=== PATIENT | female | born 2000 | race Caucasian/White ===

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

== ENCOUNTER 2020-07-31 18:56 | Emergency (ER) | payer OTHER ==
--- NOTE | 2020-07-31 20:02 | ER Document Report ---
ED Medical Screen (RME) - General Chief Complaint: Abdominal Pain Stated Complaint: BLOOD IN URINE,ABDOMINAL PAIN Time Seen by Provider: 07/31/20 19:54 TRAVEL OUTSIDE OF THE [place] IN LAST 30 DAYS: No - HPI Notes: Patient is a 19-year-old female with no medical history who presents with abdominal pain and vaginal bleeding. Patient states she has taken 3 tests in the last 2 days which have all been positive. Her last menstrual period was 06/24/2020. Patient states her abdominal pain began 3 days ago and the vaginal bleeding began earlier today. She reports nausea and vomiting but denies hematemesis and fever. . Patient is unsure of her blood type. - Related Data Allergies/Adverse Reactions: No Known Allergies Allergy (Unverified 07/31/20 19:51) Past Medical History Renal/ Medical History: Denies: Hx Peritoneal Dialysis Past Surgical History: Reports: Hx Appendectomy - Immunizations Immunizations up to date: Yes Hx Diphtheria, Pertussis, Tetanus Vaccination: Yes Physical Exam - Vital signs Vitals: Temp Pulse Resp BP Pulse Ox 98.2 F 85 16 143/81 H 100 07/31/20 19:02 07/31/20 19:02 07/31/20 19:02 07/31/20 19:02 07/31/20 19:02 - Abdominal Distension: No distension Bowel sounds: Normal Tenderness: Tender - Diffusely Notes: Exam limited due to patient seated position in triage. Course - Re-evaluation Re-evalutation: I have greeted and performed a rapid initial assessment of this patient. A comprehensive ED assessment and evaluation of the patient, analysis of test results and completion of medical decision making process will be conducted by an additional ED providers. - Vital Signs Vital signs: Temp Pulse Resp BP Pulse Ox 98.2 F 85 16 143/81 H 100 07/31/20 19:02 07/31/20 19:02 07/31/20 19:02 07/31/20 19:02 07/31/20 19:02
[2020-07-31 20:20] LABS: APPEARANCE,URINE SLIGHTLY-CLOUDY; BILIRUBIN,URINE NEGATIVE (NEGATIVE); COLOR,URINE YELLOW; GLUCOSE, URINE NEGATIVE (NEGATIVE); KETONES,URINE NEGATIVE (NEGATIVE); LEUKOCYTE ESTERASE,URINE MODERATE (NEGATIVE); NITRITE,URINE NEGATIVE (NEGATIVE); PROTEIN,URINE NEGATIVE (NEGATIVE); URINE SPECIFIC GRAVITY 1.018; UROBILINOGEN,URINE NEGATIVE mg/dL (<2.0)
[2020-07-31 21:05] LABS: ABSOLUTE BASOPHILS # (AUTO) 0.1 10^3/uL (0.0-0.2); ABSOLUTE EOSINOPHILS # (AUTO) 0.1 10^3/uL (0.0-0.6); ABSOLUTE LYMPHOCYTES (AUTO) 2.7 10^3/uL (0.5-4.7); ABSOLUTE MONOCYTES (AUTO) 0.5 10^3/uL (0.1-1.4); ABSOLUTE NEUT (AUTO) 5.7 10^3/uL (1.7-8.2); BASOPHILS % (AUTO) 0.6 % (0-2); EOSINOPHILS % (AUTO) 0.9 % (0-6); HEMATOCRIT 39.5 % (36.0-47.0); HEMOGLOBIN 13.7 g/dL (12.0-15.5); LYMPHOCYTES % (AUTO) 29.8 % (13-45); MEAN CORPUSCULAR HEMOGLOBIN 29.8 pg (27.0-33.4); MEAN CORPUSCULAR HGB CONC 34.6 g/dL (32.0-36.0); MEAN CORPUSCULAR VOLUME 86 fl (80-97); MONOCYTES % (AUTO) 5.2 % (3-13); PLATELET COUNT 240 10^3/uL (150-450); RED BLOOD COUNT 4.58 10^6/uL (3.72-5.28); SEGMENTED NEUTROPHILS % (AUTO) 63.5 % (42-78); TOTAL CELLS COUNTED % (AUTO) 100 %
[2020-07-31 21:28] LABS: ALBUMIN 4.9 g/dL (3.5-5.0); ALKALINE PHOSPHATASE 59 U/L (38-126); ANION GAP 8 (5-19); ASPARTATE AMINO TRANSFERASE 26 U/L (14-36); BILIRUBIN,DIRECT 0.2 mg/dL (0.0-0.4); BILIRUBIN,TOTAL 0.4 mg/dL (0.2-1.3); BLOOD UREA NITROGEN 12 mg/dL (7-20); CALCIUM 9.6 mg/dL (8.4-10.2); CARBON DIOXIDE 29 mmol/L (22-30); CHLORIDE 100 mmol/L (98-107); GLUCOSE 96 mg/dL (75-110); POTASSIUM 3.9 mmol/L (3.6-5.0); TOTAL PROTEIN 8.6 g/dL (6.3-8.2)
--- NOTE | 2020-07-31 22:20 | RADIOLOGY REPORT (SQ) ---
EXAM: U/S OB TRANSVAGINAL W/O DOP CLINICAL INDICATION: Vaginal bleeding. COMPARISON: None. TECHNIQUE: First trimester OB ultrasound was performed. FINDINGS: Uterus: The uterus is anteverted. It measures 7.6 x 3.9 x 5.6 cm. There is a small nabothian cyst in the cervix. This measures 4.1 x 1.5 mm x 3.7 mm. The cervix is closed and measures 3.0 cm in length. Endometrium is thickened measuring 1.6 cm. No gestational sac is identified within the endometrium. Ovaries and adnexa: Right ovary measures 2.3 x 1.5 x 2.7 cm and contains normal follicles. Normal color flow. The left ovary measures 4.0 x 2.1 x 2.7 cm. There may be a corpus luteal cyst. This is not well seen. There is normal color flow. No free fluid. IMPRESSION: Thickening of the endometrium. No intrauterine is identified. No adnexal mass or free fluid. Viability is indeterminate.
[2020-07-31] MEDS ORDERED: ACETAMINOPHEN 325 MG TABLET PO ONE (22:43)
--- NOTE | 2020-07-31 22:49 | ER Document Report ---
ED General - General Chief Complaint: Abdominal Pain Stated Complaint: BLOOD IN URINE,ABDOMINAL PAIN Time Seen by Provider: 07/31/20 19:54 Mode of Arrival: Ambulatory Information source: Patient Notes: 19-year-old female presents to the emergency room complaining of lower pelvic cramping that started yesterday. She denies any nausea, vomiting. States this evening when she went to urinate she noted some blood in her urine and a clot when she wiped. Denies any current or previous vaginal bleeding. Does complain of dysuria. States did not take any medications for pain. Last menstrual cycle June 24. States she had a positive home test yesterday. No current OB care. 2 para 1. TRAVEL OUTSIDE OF THE [place] IN LAST 30 DAYS: No - Related Data Allergies/Adverse Reactions: No Known Allergies Allergy (Unverified 07/31/20 19:51) Past Medical History - General Information source: Patient - Social History Smoking Status: Never Smoker Frequency of alcohol use: Rare Drug Abuse: None Family History: Reviewed & Not Pertinent Renal/ Medical History: Denies: Hx Peritoneal Dialysis Past Surgical History: Reports: Hx Appendectomy - Immunizations Immunizations up to date: Yes Hx Diphtheria, Pertussis, Tetanus Vaccination: Yes Review of Systems - Review of Systems Constitutional: No symptoms reported EENT: No symptoms reported Cardiovascular: No symptoms reported Respiratory: No symptoms reported Genitourinary: Dysuria, Hematuria Female Genitourinary: . denies: Vaginal discharge, Vaginal bleeding Musculoskeletal: No symptoms reported Skin: No symptoms reported Neurological/Psychological: No symptoms reported -: Yes All other systems reviewed and negative Physical Exam - Vital signs Vitals: Temp Pulse Resp BP Pulse Ox 98.2 F 85 16 143/81 H 100 07/31/20 19:02 07/31/20 19:02 07/31/20 19:02 07/31/20 19:02 07/31/20 19:02 - Notes Notes: GENERAL: Mild acute distress, non-toxic appearance. HEAD: Normal with no signs of head trauma. EYES: PERRLA, EOMI, conjunctiva normal, no discharge. EARS: Hearing grossly intact. NOSE: Normal. THROAT: Oropharynx is normal. NECK: Normal range of motion, no tenderness, supple, no lymphadenopathy, No adenopathy, no JVD. CHEST: Clear breath sounds bilaterally. No wheezes, rales, or rhonchi. CARDIAC: Regular rate and rhythm. S1 and S2, without murmurs, gallops, or rubs. VASCULAR: No Edema. Peripheral pulses normal and equal in all extremities. ABDOMEN: Normal and soft with no tenderness, no masses or pulsatile masses. No organomegaly. Positive bowel sounds x4. No CVA tenderness noted bilaterally. Patient refused pelvic exam. GASTROINTESTINAL: Bowel sounds normal LYMPATHTIC: No lymphadenopathy noted. MUSCULOSKELETAL: Good range of motion of all major joints. Extremities without clubbing, cyanosis or edema. NEUROLOGICAL: Alert and oriented x 3. No focal sensory or strength deficits. Speech normal. Follows commands appropriately. PSYCHIATRIC: Normal Affect, judgement and mood. SKIN: Normal appearance with no rashes or lesions. Course - Re-evaluation Re-evalutation: 07/31/20 22:46 Patient is resting comfortably she is pain-free on exam. She is afebrile, she is nontoxic-appearing, reviewed lab results with patient. Aware of the hCG level of 58.11. Discussed findings of ultrasound which shows a nabothian cyst, no intrauterine , no obvious tubal noted on ultrasound, cervix is closed. Patient was counseled on the importance to take Tylenol as needed for pain. Not to exceed 8 tablets in 24 hours. Also discussed with patient the importance of a repeat hCG in 48 hours. If unable to follow-up with [facility]ATION SPECIALIST on Sunday she is to return to the emergency room for her repeat hCG. On-call physician will be provided. Patient was given strict return to the emergency room guidelines. Return for any new or worsening symptoms. All questions were answered. Patient verbalized understanding and agrees with plan of care. 07/31/20 22:48 07/31/20 22:50 - Vital Signs Vital signs: Temp Pulse Resp BP Pulse Ox 98.2 F 85 16 143/81 H 100 07/31/20 19:02 07/31/20 19:02 07/31/20 19:02 07/31/20 19:02 07/31/20 19:02 - Laboratory Results Result Diagrams: 07/31/20 20:45 07/31/20 20:45 Laboratory Results Interpreted: 07/31/20 07/31/20 20:05 20:45 Total Protein 8.6 H Beta HCG, Quant 58.11 H Ur Leukocyte Esterase MODERATE H Critical Laboratory Results Reviewed: No Critical Results - Radiology Results Critical Radiology Results Reviewed: No Critical Results Discharge - Discharge Clinical Impression: Pelvic pain during , Nabothian cyst UTI (urinary tract infection) Qualifiers: Urinary tract infection type: site unspecified Hematuria presence: without hematuria Qualified Code(s): N39.0 - Urinary tract infection, site not specified Condition: Stable Disposition: HOME, SELF-CARE Instructions: Urinary Tract Infection ([facility]), Nitrofurantoin ([facility]), Pelvic Pain in ([facility]) Additional Instructions: Repeat hCG level in 48 hours. Call [facility]ATION SPECIALIST office on Sunday. If unable to get an appointment with [facility] MITIGATION SPECIALIST on Sunday return to the emergency room. Tylenol as needed for pain not to exceed 8 tablets of regular strength Tylenol in 24 hours. Return to the emergency room for any new or worsening symptoms. Prescriptions: Nitrofurantoin Monohyd/M-Cryst [Macrobid 100 mg Capsule] 100 mg PO BID 7 Days #14 cap Referrals: HECTOR HARPER MD [ACTIVE PROVISIONAL STAFF] - Follow up in 3-5 days (Call on Sunday for an outpatient follow-up appointment on Sunday for repeat hCG level)
[2020-07-31] MEDS ORDERED: NITROFURANTOIN MONOHYD/M-CRYST 100 MG CAPSULE PO ONE (22:53)
[2020-07-31 23:03] VITALS: BP 130/74
== END 2020-07-31 23:02 | disposition home or self-care (01) ==
LOC: ER 18:56
DX: O23.41 Unspecified infection of urinary tract in pregnancy, first trimester (principal); O26.891 Other specified pregnancy related conditions, first trimester; N88.8 Other specified noninflammatory disorders of cervix uteri; R10.2 Pelvic and perineal pain; Z3A.01 Less than 8 weeks gestation of pregnancy
CPT/HCPCS: 99284; 86900; 86901; 36415; 87086; 84702; 85025; 87088; 80053; 81001; 76817; J8499

== ENCOUNTER 2020-08-03 14:36 | Emergency (ER) | payer OTHER ==
--- NOTE | 2020-08-03 15:16 | ER Document Report ---
ED Medical Screen (RME) - General Chief Complaint: Abdominal Pain Stated Complaint: FOLLOW UP/HCG LEVEL TEST Time Seen by Provider: 08/03/20 15:07 TRAVEL OUTSIDE OF THE [place] IN LAST 30 DAYS: No - HPI Notes: 08/03/20 15:12 19-year-old female G2, P1 LMP 06/24/2020 presents to the emergency room for reevaluation of her hCG levels and ultrasound after having vaginal bleeding on July 31 2020 and she states she did have a positive home test on July 30, 2020. Patient has not followed up with an MECHANICAL OPERATOR. Patient also reports he is having right upper quadrant abdominal pain with nausea that started today. Has not tried any [id number] medications. Patient states she has been eating a bland diet. Denies any vomiting, diarrhea, fevers chills, chest pain or shortness of breath. I have greeted and performed a rapid initial assessment of this patient. A comprehensive ED assessment and evaluation of the patient, analysis of test results and completion of the medical decision making process will be conducted by additional ED providers. PHYSICAL EXAMINATION: GENERAL: Well-appearing, well-nourished and in no acute distress. CV: s1, s2 regular LUNGS: No respiratory distress abd: RUQ abd pain on palpation, suprapubic pain on palpation. no cva tenderness appreciated bilaterally. Musculoskeletal: Normal range of motion NEUROLOGICAL: Normal speech, normal gait. SKIN: Warm, Dry, normal turgor, no rashes or lesions noted. The patient was evaluated during a global COVID-19 pandemic and that diagnosis was suspected/considered upon their initial presentation. Their evaluation, treatment and testing was consistent with current guidelines for patients who present with complaints or symptoms and may be related to COVID-19. 08/03/20 15:13 - Related Data Allergies/Adverse Reactions: No Known Allergies Allergy (Unverified 07/31/20 19:51) Past Medical History Renal/ Medical History: Denies: Hx Peritoneal Dialysis Past Surgical History: Reports: Hx Appendectomy - Immunizations Immunizations up to date: Yes Hx Diphtheria, Pertussis, Tetanus Vaccination: Yes Physical Exam - Vital signs Vitals: Temp Pulse Resp BP Pulse Ox 98.1 F 86 14 133/83 H 99 08/03/20 14:40 08/03/20 14:40 08/03/20 14:40 08/03/20 14:40 08/03/20 14:40 Course - Vital Signs Vital signs: Temp Pulse Resp BP Pulse Ox 98.1 F 86 14 133/83 H 99 08/03/20 14:40 08/03/20 14:40 08/03/20 14:40 08/03/20 14:40 08/03/20 14:40
[2020-08-03 15:50] LABS: ABSOLUTE LYMPHOCYTES (AUTO) 1.5 10^3/uL (0.5-4.7); ABSOLUTE MONOCYTES (AUTO) 0.4 10^3/uL (0.1-1.4); ABSOLUTE NEUT (AUTO) 3.9 10^3/uL (1.7-8.2); BASOPHILS % (AUTO) 0.8 % (0-2); EOSINOPHILS % (AUTO) 0.6 % (0-6); HEMATOCRIT 41.7 % (36.0-47.0); HEMOGLOBIN 14.5 g/dL (12.0-15.5); LYMPHOCYTES % (AUTO) 25.1 % (13-45); MEAN CORPUSCULAR HEMOGLOBIN 30.2 pg (27.0-33.4); MEAN CORPUSCULAR HGB CONC 34.8 g/dL (32.0-36.0); MEAN CORPUSCULAR VOLUME 87 fl (80-97); MONOCYTES % (AUTO) 7.4 % (3-13); PLATELET COUNT 227 10^3/uL (150-450); RED BLOOD COUNT 4.81 10^6/uL (3.72-5.28); RED CELL DISTRIBUTION WIDTH 13.6 % (11.5-14.0); SEGMENTED NEUTROPHILS % (AUTO) 66.1 % (42-78); TOTAL CELLS COUNTED % (AUTO) 100 %; WHITE BLOOD COUNT 5.9 10^3/uL (4.0-10.5)
[2020-08-03 16:04] LABS: APPEARANCE,URINE CLOUDY; BILIRUBIN,URINE NEGATIVE (NEGATIVE); COLOR,URINE YELLOW; GLUCOSE, URINE NEGATIVE (NEGATIVE); KETONES,URINE NEGATIVE (NEGATIVE); LEUKOCYTE ESTERASE,URINE LARGE (NEGATIVE); NITRITE,URINE NEGATIVE (NEGATIVE); PROTEIN,URINE NEGATIVE (NEGATIVE); URINE SPECIFIC GRAVITY 1.023; UROBILINOGEN,URINE NEGATIVE mg/dL (<2.0)
[2020-08-03 16:11] LABS: ALBUMIN 4.5 g/dL (3.5-5.0); ALKALINE PHOSPHATASE 42 U/L (38-126); ANION GAP 8 (5-19); ASPARTATE AMINO TRANSFERASE 23 U/L (14-36); BILIRUBIN,DIRECT 0.2 mg/dL (0.0-0.4); BILIRUBIN,TOTAL 0.6 mg/dL (0.2-1.3); BLOOD UREA NITROGEN 11 mg/dL (7-20); CALCIUM 9.7 mg/dL (8.4-10.2); CARBON DIOXIDE 28 mmol/L (22-30); CHLORIDE 103 mmol/L (98-107); GLUCOSE 86 mg/dL (75-110); POTASSIUM 4.1 mmol/L (3.6-5.0); TOTAL PROTEIN 8.1 g/dL (6.3-8.2)
--- NOTE | 2020-08-03 17:04 | RADIOLOGY REPORT (SQ) ---
EXAM DESCRIPTION: U/S ABDOMEN LIMITED W/O DOP IMAGES COMPLETED DATE/TIME: 08/03/2020 4:54 pm REASON FOR STUDY: RUQ abd x 2 days, + nausea COMPARISON: None. TECHNIQUE: Dynamic and static grayscale images acquired of the abdomen and recorded on PACS. Additio nal selected color Doppler and spectral images recorded. LIMITATIONS: None. FINDINGS: PANCREAS: No masses. Visualized pancreatic duct normal caliber. LIVER: No masses. Echotexture normal. LIVER VASCULATURE: Normal directional flow of the main portal vein and hepatic veins. GALLBLADDER: No stones. Normal wall thickness. No pericholecystic fluid. ULTRASOUND-DETECTED BENITES'S SIGN: Negative. INTRAHEPATIC DUCTS AND COMMON DUCT: CBD and intrahepatic ducts normal caliber. No filling defects. AORTA: No aneurysm. RIGHT KIDNEY: Normal size, 10.6 cm. Normal echogenicity. No solid or suspicious masses. No hydroneph rosis. No calcifications. PERITONEAL AND RIGHT PLEURAL SPACE: No ascites or effusions. OTHER: No other significant findings. IMPRESSION: NORMAL RIGHT UPPER QUADRANT ULTRASOUND. TECHNICAL DOCUMENTATION: JOB ID: [id number] 2010 [employer]- All Rights Reserved Reading location - IP/workstation name: [email or web address]
--- NOTE | 2020-08-03 17:10 | RADIOLOGY REPORT (SQ) ---
EXAM DESCRIPTION: U/S OB TRANSVAGINAL W/O DOP IMAGES COMPLETED DATE/TIME: 08/03/2020 4:54 pm REASON FOR STUDY: repeat u/s, vag bleeding in early preg COMPARISON: 07/31/2020 TECHNIQUE: Transvaginal static and realtime grayscale images acquired of the pelvis. Additional ruben cted spectral and color Doppler images recorded. All images stored on PACs. bHC on this date. Was 56 on 07/31/2020. CLINICAL DATES: LMP 06/24/2020. 5 weeks 5 days. LIMITATIONS: None. FINDINGS: There is no intrauterine gestational sac at this time. Therefore there is no pole o r yolk sac. There is no heart motion. UTERUS: No masses. No anomalies. The endometrium is thickened at 18 mm. CERVICAL LENGTH: 3 cm. Closed. RIGHT ADNEXA: Normal ovary with normal vascular flow. 2.8 x 2 x 1.2 cm. Free fluid No adnexal masses. LEFT ADNEXA: Normal ovary with normal vascular flow. 3.9 x 2.4 x 2.3 cm. Possible 22 mm corpus lute um. Free fluid No adnexal masses. FREE FLUID: Free fluid in the posterior cul de sac. OTHER: No other significant finding. IMPRESSION: No intrauterine gestation is seen at this time. There is free fluid in the adnexae and in the posterior cul de sac. The endometrium appears to be thickened. Follow-up as clinically indic ated. TECHNICAL DOCUMENTATION: JOB ID: [id number] 2010 [employer]- All Rights Reserved rev Reading location - IP/workstation name: [email or web address]
--- NOTE | 2020-08-03 17:24 | ER Document Report ---
ED General - General Chief Complaint: Abdominal Pain Stated Complaint: FOLLOW UP/HCG LEVEL TEST Time Seen by Provider: 08/03/20 15:07 Primary Care Provider: MILO POLLOCK MD [ACTIVE STAFF] - Follow up in 3-5 days TRAVEL OUTSIDE OF THE [place] IN LAST 30 DAYS: No - HPI Notes: Patient is a 19-year-old female G2, P1 who presents with lower abdominal cramping. States her last menstrual cycle was June 24. She took a home test that was faintly positive. She came to the ER 2 days ago for vaginal spotting and cramping. She had an ultrasound at that time that was not conclusive for due to low hCG. She was told to follow-up with [facility] for repeat hCG level or return to the ER if she is unable to see [facility]. She states she tried to make an appointment but they were unable to see her until August. Patient came back to the ER for reevaluation. She denies any vaginal spotting or bleeding. She still has some lower abdominal cramping. She has nausea. No vomiting. No fevers or chills. No chest pain or shortness of breath. She had a normal with her last child. She does have some dysuria and feelings of a UTI. - Related Data Allergies/Adverse Reactions: No Known Allergies Allergy (Unverified 07/31/20 19:51) Past Medical History - General Information source: Patient - Social History Smoking Status: Never Smoker Family History: Reviewed & Not Pertinent Renal/ Medical History: Denies: Hx Peritoneal Dialysis Past Surgical History: Reports: Hx Appendectomy - Immunizations Immunizations up to date: Yes Hx Diphtheria, Pertussis, Tetanus Vaccination: Yes Review of Systems - Review of Systems Notes: CONSTITUTIONAL: No fever, fatigue or weight loss. SKIN: No rash. HENT: No congestion, ear pain, or sore throat. EYES: No recent vision problems or eye pain. CARDIOVASCULAR: No chest pain or edema. RESPIRATORY: No cough, shortness of breath, congestion, or wheezing. GASTROINTESTINAL: No abdominal pain, vomiting, bloody stools or diarrhea. Positive for lower abdominal cramping. Positive for nausea. GENITOURINARY: Positive for dysuria. MUSCULOSKELETAL: No joint pain or swelling. NEUROLOGIC: No seizures. No headache, focal weakness or sensory changes. HEMATOLOGIC: No unusual bruising or bleeding. PSYCHIATRIC: No depression or anxiety. Physical Exam - Vital signs Vitals: Temp Pulse Resp BP Pulse Ox 98.1 F 86 14 133/83 H 99 08/03/20 14:40 08/03/20 14:40 08/03/20 14:40 08/03/20 14:40 08/03/20 14:40 - General General appearance: Appears well In distress: None Notes: VITAL SIGNS: Within normal limits. GENERAL: No acute distress, non-toxic appearance. HEAD: Normal with no signs of head trauma. EYES: Conjunctiva normal, no discharge. EARS: Hearing grossly intact. NECK: Normal range of motion, no tenderness, supple, no lymphadenopathy, No adenopathy, no JVD. CHEST: Clear breath sounds bilaterally. No wheezes, rales, or rhonchi. CARDIAC: Regular rate and rhythm. VASCULAR: No Edema. ABDOMEN: Normal and soft, no masses or pulsatile masses. No rigidity. No guarding. Abdominal exam is benign. GASTROINTESTINAL: Bowel sounds normal MUSCULOSKELETAL: Good range of motion of all major joints. Extremities without clubbing, cyanosis or edema. NEUROLOGICAL: Alert and oriented x 3. No focal sensory or strength deficits. Speech normal. Follows commands appropriately. PSYCHIATRIC: Normal Affect, judgement and mood. SKIN: Normal appearance with no rashes or lesions. Course - Re-evaluation Re-evalutation: 08/03/20 17:24 Patient's HCG is increasing from last time. It is still very low to see a intrauterine gestation on ultrasound. She is in no acute distress. She is resting comfortably. I discussed with Dr. Pollock from [facility] about the slight free fluid fluid on her ultrasound as well as helping her get an appointment. She states that she can be seen in the office within 1 to 2 days for repeat hCG. She also states that her hCG is rising appropriately. I discussed all results with the patient. I have referred her to [facility]. She needs to follow-up with them for repeat testing. Patient was given strict return precautions. She is Rh+ so she does not require RhoGam. She is not currently bleeding. She does state that she feels like she has a UTI and has some leukocytes and white blood cells on her UA. She did have a urine culture that just resulted from 2 days ago. It appears that she has group B strep in her urine. I will change her to amoxicillin. I told her to stop the Macrobid and take the amoxicillin instead. I also told her to discuss this with the [facility] and wrote it down on her instructions. Patient is very agreeable to the plan. She will be discharged home with strict follow-up. 08/03/20 17:26 08/03/20 20:01 08/03/20 20:04 - Vital Signs Vital signs: Temp Pulse Resp BP Pulse Ox 97.9 F 70 18 118/62 99 08/03/20 17:57 08/03/20 17:57 08/03/20 17:57 08/03/20 17:57 08/03/20 17:57 - Laboratory Results Result Diagrams: 08/03/20 15:25 08/03/20 15:25 Laboratory Results Interpreted: 08/03/20 08/03/20 15:23 15:25 Beta HCG, Quant 287.44 H Ur Leukocyte Esterase LARGE H Critical Laboratory Results Reviewed: No Critical Results - Radiology Results Critical Radiology Results Reviewed: No Critical Results Discharge - Discharge Clinical Impression: Pelvic pain during UTI (urinary tract infection) Qualifiers: Urinary tract infection type: site unspecified Hematuria presence: without hematuria Qualified Code(s): N39.0 - Urinary tract infection, site not specified Condition: Stable Disposition: HOME, SELF-CARE Instructions: Pelvic Pain in ([facility]), ([facility]), Urinary Tract Infection ([facility]) Additional Instructions: Your work-up today is reassuring. Please follow-up with [facility]. Call first thing tomorrow for an appointment. Please return the ER for any bleeding, worsening pain, any other concerning symptoms. Your urine culture from several days ago returned positive for group B strep. Please stop taking the antibiotic you are on now from your last visit and start the new one that I will send to the pharmacy (amoxicillin). Please let the [facility] know so they can follow-up on this as well. Prescriptions: Amoxicillin 1 tab PO BID 7 Days #14 tab Referrals: MILO POLLOCK MD [ACTIVE STAFF] - Follow up in 3-5 days
[2020-08-03 17:58] VITALS: BP 118/62
== END 2020-08-03 17:58 | disposition home or self-care (01) ==
LOC: ER 14:36
DX: O23.41 Unspecified infection of urinary tract in pregnancy, first trimester (principal); O26.891 Other specified pregnancy related conditions, first trimester; R10.2 Pelvic and perineal pain; R11.0 Nausea; Z67.90 Unspecified blood type, Rh positive; Z3A.01 Less than 8 weeks gestation of pregnancy
CPT/HCPCS: 36415; 76705; 76817; 80053; 81001; 83690; 84702; 85025; 99284

== ENCOUNTER 2020-08-15 17:52 | Emergency (ER) | payer OTHER ==
[2020-08-15 18:14] VITALS: BP 126/73
--- NOTE | 2020-08-15 18:42 | ER Document Report ---
ED Medical Screen (RME) - General Chief Complaint: Vaginal Discharge Stated Complaint: ABDOMINAL PAIN,VOMITING Time Seen by Provider: 08/15/20 18:36 Notes: Patient is a 20-year-old female, G2, P1 who presents emergency department with a chief complaint of abdominal pain. Last menstrual cycle was June 24. She has been following up with her OB because of continuous chest pain. States that she is "4 weeks ." Started to have some brown discharge today. Exam: Tender mid lower abdomen. I have greeted and performed a rapid initial assessment of this patient. A comprehensive ED assessment and evaluation of the patient, analysis of test results and completion of medical decision making process will be conducted by an additional ED providers. TRAVEL OUTSIDE OF THE [place] IN LAST 30 DAYS: No - Related Data Allergies/Adverse Reactions: No Known Allergies Allergy (Verified 08/15/20 18:34) Past Medical History Renal/ Medical History: Denies: Hx Peritoneal Dialysis Past Surgical History: Reports: Hx Appendectomy - Immunizations Immunizations up to date: Yes Hx Diphtheria, Pertussis, Tetanus Vaccination: Yes Physical Exam - Vital signs Vitals: Temp Pulse Resp BP Pulse Ox 98.0 F 87 20 126/73 H 100 08/15/20 18:13 08/15/20 18:13 08/15/20 18:13 08/15/20 18:13 08/15/20 18:13 Course - Vital Signs Vital signs: Temp Pulse Resp BP Pulse Ox 98.0 F 87 20 126/73 H 100 08/15/20 18:13 08/15/20 18:13 08/15/20 18:13 08/15/20 18:13 08/15/20 18:13
[2020-08-15 19:39] LABS: APPEARANCE,URINE SLIGHTLY-CLOUDY; BILIRUBIN,URINE NEGATIVE (NEGATIVE); COLOR,URINE YELLOW; GLUCOSE, URINE NEGATIVE (NEGATIVE); KETONES,URINE NEGATIVE (NEGATIVE); LEUKOCYTE ESTERASE,URINE TRACE (NEGATIVE); NITRITE,URINE NEGATIVE (NEGATIVE); PROTEIN,URINE 30 mg/dL (NEGATIVE); URINE SPECIFIC GRAVITY 1.031
[2020-08-15 19:41] LABS: ABSOLUTE BASOPHILS # (AUTO) 0.1 10^3/uL (0.0-0.2); ABSOLUTE EOSINOPHILS # (AUTO) 0.1 10^3/uL (0.0-0.6); ABSOLUTE LYMPHOCYTES (AUTO) 1.8 10^3/uL (0.5-4.7); ABSOLUTE MONOCYTES (AUTO) 0.4 10^3/uL (0.1-1.4); EOSINOPHILS % (AUTO) 0.8 % (0-6); HEMATOCRIT 40.9 % (36.0-47.0); HEMOGLOBIN 14.1 g/dL (12.0-15.5); LYMPHOCYTES % (AUTO) 28.4 % (13-45); MEAN CORPUSCULAR HEMOGLOBIN 29.8 pg (27.0-33.4); MEAN CORPUSCULAR HGB CONC 34.5 g/dL (32.0-36.0); MEAN CORPUSCULAR VOLUME 86 fl (80-97); MONOCYTES % (AUTO) 6.7 % (3-13); PLATELET COUNT 256 10^3/uL (150-450); RED BLOOD COUNT 4.74 10^6/uL (3.72-5.28); RED CELL DISTRIBUTION WIDTH 13.6 % (11.5-14.0); SEGMENTED NEUTROPHILS % (AUTO) 63.1 % (42-78); TOTAL CELLS COUNTED % (AUTO) 100 %; WHITE BLOOD COUNT 6.4 10^3/uL (4.0-10.5)
[2020-08-15 20:05] LABS: ALBUMIN 4.5 g/dL (3.5-5.0); ALKALINE PHOSPHATASE 40 U/L (38-126); ANION GAP 7 (5-19); ASPARTATE AMINO TRANSFERASE 24 U/L (14-36); BILIRUBIN,DIRECT 0.2 mg/dL (0.0-0.4); BILIRUBIN,TOTAL 0.5 mg/dL (0.2-1.3); BLOOD UREA NITROGEN 9 mg/dL (7-20); CALCIUM 9.3 mg/dL (8.4-10.2); CARBON DIOXIDE 28 mmol/L (22-30); CHLORIDE 102 mmol/L (98-107); GLUCOSE 90 mg/dL (75-110); POTASSIUM 4.2 mmol/L (3.6-5.0)
== END 2020-08-15 22:34 | disposition left against medical advice (07) ==
LOC: ER 17:52
DX: N89.8 Other specified noninflammatory disorders of vagina (principal); R10.30 Lower abdominal pain, unspecified
CPT/HCPCS: 36415; 80053; 81001; 83690; 84702; 85025; 99281